=== PATIENT | female | born 1980 | race Caucasian/White ===

== ENCOUNTER 2016-10-28 20:28 | Emergency (ER) | payer SELFPAY ==
[2016-10-28 20:42] VITALS: BP 110/61; PULSE 66; TEMP 98.3; BMI 23.8
--- NOTE | 2016-10-28 21:40 | PDOC ---
History of Present Illness - General Chief Complaint: Pain Stated Complaint: EAR PAIN Time Seen by Provider: 10/28/16 21:04 History Source: Patient Exam Limitations: No Limitations - History of Present Illness Initial Comments: CHIEF COMPLAINT: 36 y/o afebrile female with b/l ear pain x 6 days. HISTORY OF PRESENT ILLNESS: The patient was seen at an urgent care a few days ago for her symptoms and was prescribed polymyxin/neomycin ear drops which she states aren't helping. She states her symptoms are worse and she can no longer hear out of her right ear. she denies f/c, n/v/d, JACQUES, neck pain and all other symptoms. She states there is no way she is . Vital signs on arrival are within normal limits. REVIEW OF SYSTEMS: GENERAL/CONSTITUTIONAL: No fever/chills. No weakness. No weight change. HEAD, EYES, EARS, NOSE AND THROAT: No change in vision. +b/l ear pain without discharge. . No sore throat. CARDIOVASCULAR: No chest pain or shortness of breath. RESPIRATORY: No cough, wheezing, or hemoptysis. GASTROINTESTINAL:No abd pain,nausea, vomiting, diarrhea. GENITOURINARY: No dysuria, frequency, or change in urination. MUSCULOSKELETAL: No joint or muscle swelling or pain. No neck or back pain. SKIN: No rash or easy bruising. NEUROLOGIC: No headache, vertigo, loss of consciousness, or loss of sensation. PHYSICAL EXAM: GENERAL: The patient is awake, alert, and fully oriented, in no acute distress. HEAD: Normal with no signs of trauma. No mastoid TTP b/l. ENT: Right TM is dull and sclerotic without signs of rupture. Right canal is inflammed and very TTP. Left TM also sclerotic and dull without canal edema. EXTREMITIES: Normal range of motion, no edema. NEUROLOGICAL: Normal speech, normal gait. CN II-XII grossly intact. SKIN: Warm, dry, normal turgor, no rashes or lesions noted. Past History - Past Medical History Allergies/Adverse Reactions: Allergies Allergy/AdvReac Type Severity Reaction Status Date / Time No Known Allergies Allergy Verified 10/28/16 20:40 Home Medications: Ambulatory Orders Ciprofloxacin HCl/Dexameth [Ciprodex Otic Suspension] 4 drop TP BID #1 bottle Ibuprofen [Motrin -] 800 mg PO TID #30 tablet 04/03/15 Amox-Tr/K Cl [Augmentin - 875Mg Tablet] 1 tab PO BID #14 tablet 10/28/16 Ofloxacin Otic [Floxin Otic -] 10 drop OT DAILY #140 drops 10/28/16 Other medical history: Pt denies - Immunization History Immunization Up to Date: Yes - Psycho/Social/Smoking Cessation Hx Anxiety: No Suicidal Ideation: No Smoking Status: Yes Smoking History: Never smoked Have you smoked in the past 12 months: No Number of Cigarettes Smoked Daily: 2 Information on smoking cessation initiated: No Hx Alcohol Use: No Drug/Substance Use Hx: No Substance Use Type: None *Physical Exam - Vital Signs Last Vital Signs Temp Pulse Resp BP Pulse Ox 98.3 F 66 18 110/61 99 10/28/16 20:40 10/28/16 20:40 10/28/16 20:40 10/28/16 20:40 10/28/16 20:40 Medical Decision Making - Medical Decision Making A/P: 36 y/o female with b/l ear pain, worsened after a few days of ear drops. Will discharge to home with rx for augmentin and cipro drops. Suggested she take entire course and f/u with Dr. Gallardo if no improvement in symptoms within 2- 3 days. Pt instructed to return to the ER with any worsening or concerning symptoms. The patient verbalizes understanding of all instructions, has no further questions and is awaiting discharge. *DC/Admit/Observation/Transfer Diagnosis at time of Disposition: Otitis media Qualifiers: Otitis media type: suppurative Chronicity: acute Laterality: right Recurrence: not specified as recurrent Spontaneous tympanic membrane rupture: without spontaneous rupture Qualified Code(s): H66.001 - Acute suppurative otitis media without spontaneous rupture of ear drum, right ear Otitis externa Qualifiers: Otitis externa type: unspecified type Chronicity: acute Laterality: right Qualified Code(s): H60.501 - Unspecified acute noninfective otitis externa, right ear - Prescriptions Prescriptions: Amox-Tr/K Cl [Augmentin - 875Mg Tablet] 1 tab PO BID #14 tablet Ofloxacin Otic [Floxin Otic -] 10 drop OT DAILY #140 drops - Referrals Referrals: Mari Albert MD [Primary Care Provider] - Collin Gallardo MD [Staff Physician] - Call tomorrow - Patient Instructions Printed Discharge Instructions: DI for Otitis Externa, DI for Otitis Media ( Middle Ear Infection)-Child Additional Instructions: Discharge Instructions: -2 prescriptions were called to your pharmacy; please take as prescribed -Call Dr. Gallardo for follow up appointment if no improvement in 2-3 days -Return to the ER with any worsening or concerning symptoms
== END 2016-10-28 21:46 | disposition home or self-care (01) ==
LOC: JERFT 20:28
DX: H66.001 Acute suppurative otitis media without spontaneous rupture of ear drum, right ear (principal); H60.501 Unspecified acute noninfective otitis externa, right ear
CPT/HCPCS: 99281-25